=== PATIENT | male | born 1995 | race African-American/Black ===

== ENCOUNTER 2017-01-16 20:38 | Emergency (ER) | payer SELFPAY ==
[~2017-01-16] VITALS: Ht 182.9 cm; Wt 84.0 kg
[2017-01-17] MEDS ORDERED: METHOCARBAMOL 500MG TABLET PO ONE (03:45)
[2017-01-17] MEDS ORDERED: KETOROLAC 60MG/2ML VIAL IM ONE (03:45)
[2017-01-17 05:34] VITALS: BP 121/79
== END 2017-01-17 05:36 | disposition home or self-care (01) ==
LOC: ER 20:39
DX: S16.1XXA Strain of muscle, fascia and tendon at neck level, initial encounter (principal); S40.011A Contusion of right shoulder, initial encounter; S80.01XA Contusion of right knee, initial encounter; V89.2XXA Person injured in unspecified motor-vehicle accident, traffic, initial encounter; Y93.89 Activity, other specified; Y92.410 Unspecified street and highway as the place of occurrence of the external cause; Y99.8 Other external cause status
CPT/HCPCS: 96372; 99283; J1885

== ENCOUNTER 2020-12-26 16:27 | Emergency (ER) | payer MEDICAID ==
[~2020-12-26] VITALS: Ht 177.8 cm; Wt 85.0 kg
[2020-12-26 18:53] LABS: CLARITY URINE CLEAR (CLEAR); COLOR URINE YELLOW (YELLOW); KETONES URINE NEGATIVE (NEGATIVE); LEUKOCYTE ESTERASE URINE NEGATIVE (NEGATIVE); NITRITE URINE NEGATIVE (NEGATIVE); OCCULT BLOOD URINE NEGATIVE (NEGATIVE); PH URINE 7.5 (4.5-8.0); PROTEIN URINE NEGATIVE (NEGATIVE); SPECIFIC GRAVITY URINE 1.012 (1.005-1.030); UROBILINOGEN URINE 0.2 E.U./dL (0.2-1.0)
[2020-12-26 18:58] LABS: BASOPHILS % 1.5 % (0.0-2.0); EOSINOPHILS % 1.3 % (0.0-5.0); HEMATOCRIT. 40.5 % (42.0-52.0); LYMPHOCYTES % 37.7 % (20.0-50.0); MEAN CORPUSCULAR VOLUME 89.9 fL (80.0-94.0); MEAN PLATELET VOLUME 7.9 fl (7.4-10.4); MONOCYTES % 8.8 % (2.0-8.0); NEUTROPHILS % 50.7 % (40.0-76.0); PLATELET 161 x1000/uL (130-400); RED CELL DISTRIBUTION WIDTH 13.4 % (11.6-14.6)
[2020-12-26 19:05] LABS: CHLORIDE 108 mEq/L (98-107)
[2020-12-26 19:09] LABS: PROTHROMBIN TIME 10.9 sec (9.6-11.0)
[2020-12-26] MEDS ORDERED: ONDANSETRON HCL 4MG/2ML INJ IV ONE (19:45)
[2020-12-26] MEDS ORDERED: MORPHINE SULFATE 4 MG/ML CPJ (NOT FOR IM USE) IV ONE (19:45)
[2020-12-26 20:00] VITALS: BP 129/63
[2020-12-26] MEDS ORDERED: IOHEXOL-300 100 ML BOTTLE ONE (22:30)
[2020-12-26] MEDS ORDERED: POLY119P3 PO (23:17)
== END 2020-12-26 23:48 | disposition home or self-care (01) ==
LOC: ER 16:27
DX: K92.1 Melena (principal); K52.9 Noninfective gastroenteritis and colitis, unspecified; R03.0 Elevated blood-pressure reading, without diagnosis of hypertension; Z98.890 Other specified postprocedural states
CPT/HCPCS: 36415; 74177; 80053; 81003; 83690; 85025; 85610; 93005; 96374; 96375; 99285; J2270; J2405; Q9967

== ENCOUNTER 2023-04-10 09:07 | Emergency (ER) | payer MEDICAID ==
[~2023-04-10] VITALS: Ht 180.3 cm; Wt 86.1 kg
[~2023-04-10 09:07] MED LIST: POLY119P3 PO
[2023-04-10 09:13] VITALS: BP 115/69; PULSE 67; RESP 18; TEMP 98.1; O2SAT 100
[2023-04-10] MEDS ORDERED: IBUP-2029 MT (10:03)
== END 2023-04-10 10:16 | disposition home or self-care (01) ==
LOC: ER 09:07
DX: H91.92 Unspecified hearing loss, left ear (principal); R51.9 Headache, unspecified
CPT/HCPCS: 99282

== ENCOUNTER 2023-04-18 01:36 | Emergency (ER) | payer MEDICAID ==
[~2023-04-18] VITALS: Ht 175.3 cm; Wt 88.2 kg
[~2023-04-18 01:36] MED LIST changes: +IBUP-2029 MT
[2023-04-18 01:47] VITALS: BP 130/82; PULSE 91; RESP 16; TEMP 98.6; O2SAT 100
== END 2023-04-18 06:19 | disposition home or self-care (01) ==
LOC: ER 01:36
DX: H93.12 Tinnitus, left ear (principal)
CPT/HCPCS: 99281

== ENCOUNTER 2023-08-07 09:52 | Emergency (ER) | payer OTHER, MEDICAID ==
[~2023-08-07] VITALS: Ht 180.3 cm; Wt 93.0 kg
[2023-08-07 09:53] VITALS: TEMP 98.8; O2SAT 100
[2023-08-07 10:38] VITALS: BP 132/81; PULSE 64; RESP 16
[2023-08-07] MEDS ORDERED: IBUPROFEN 600MG TABLET PO STA (10:38)
[2023-08-07] MEDS ORDERED: METH-653 MT (11:51)
== END 2023-08-07 12:32 | disposition home or self-care (01) ==
LOC: ER 09:52
DX: S60.021A Contusion of right index finger without damage to nail, initial encounter (principal); Z98.890 Other specified postprocedural states; X58.XXXA Exposure to other specified factors, initial encounter; Y93.89 Activity, other specified; Y92.89 Other specified places as the place of occurrence of the external cause; Y99.8 Other external cause status
CPT/HCPCS: 73110; 73130; 99284